=== PATIENT | female | born 1980 | race Caucasian/White ===

== ENCOUNTER 2021-07-29 20:50 | Emergency (ER) | payer MEDICAID ==
[~2021-07-29] VITALS: Ht 152.4 cm; Wt 82.6 kg
--- NOTE | 2021-07-29 21:05 | NUR ---
BIBHUSBAND C/O RIGHT SIDED WEAKNESS, WYATT, DIZZY, R FACE DROOP THAT BEGAN AT 1600. PT ALERT AND ORIENTED X4 BREATHING EVEN AND UNLABORED ABLE TO AMBULATE WITHOUT DIFFICULTY TO ER BED 10. PT CHANGED INTO GOWN AND PLACED ON MONITOR. ALL V/S STABLE.
[2021-07-29 22:08] LABS: BASOPHILS % (AUTO) 0.6 % (0.0-2.0); HEMATOCRIT 38 % (33-45); HEMOGLOBIN 12.8 g/dL (11.5-14.8); LYMPHOCYTES % (AUTO) 37.3 % (20.0-44.0); MEAN CORPUSCULAR HGB CONC 33 g/dl (31.0-36.0); MEAN CORPUSCULAR VOLUME 90 fL (82-100); MONOCYTES # (AUTO) 0.6 K/uL (0.1-1.30); MONOCYTES % (AUTO) 7.4 % (2.0-12.0); NEUTROPHILS # (AUTO) 4.2 K/uL (1.8-8.9); NEUTROPHILS % (AUTO) 52.7 % (43.0-81.0); PLATELET COUNT (AUTO) 246 K/uL (150-450); RED BLOOD CELL COUNT(AUTO) 4.25 MIL/uL (4.0-5.2)
[2021-07-29 22:24] LABS: CALCIUM, SERUM 8.4 mg/dL (8.5-10.1); CARBON DIOXIDE 25 mmol/L (21-32); CHLORIDE 106 mmol/L (98-107); CREATININE 0.6 mg/dL (0.6-1.3); GLUCOSE 100 mg/dL (74-106); POTASSIUM 3.7 mmol/L (3.5-5.1); SODIUM SERUM 137 mmol/L (136-145); UREA NITROGEN, BLOOD 16 mg/dL (7-18)
[2021-07-29] MEDS ORDERED: PRED50TA PO (23:21)
--- NOTE | 2021-07-30 | NUR ---
Patient discharged to home in stable condition. Rx and Written and verbal after care instructions given. Patient verbalizes understanding of instruction.
[2021-07-30 00:26] VITALS: BP 110/65
== END 2021-07-30 00:10 | disposition home or self-care (01) ==
LOC: ER 20:52
DX: G51.0 Bell's palsy (principal); R55 Syncope and collapse; Z60.2 Problems related to living alone
CPT/HCPCS: 36415; 70450-TC; 71045-TC; 80048-TC; 84484-TC; 84702-TC; 85025-TC